=== PATIENT | female | born 2000 | race Caucasian/White ===

== ENCOUNTER 2023-03-31 21:34 | Emergency (ER) | payer OTHER ==
[2023-03-31 21:44] VITALS: BP 100/63; PULSE 83; RESP 20; TEMP 98.1; BMI 21.4
[2023-03-31] MEDS ORDERED: SULFAMETHOXAZOLE/TRIMETHOPRIM 800MG/160MG D.S. TABLET PO ONE (22:34)
[2023-03-31] MEDS ORDERED: SULFAMETHOXAZOLE/TRIMETHOPRIM 800MG/160MG D.S. TABLET ONE (22:42)
[2023-03-31 22:59] LABS: EPI CELLS >36 /uL (0-25.1); HYALINE CASTS 0 /uL (0-3.1); URINE APPEARANCE CLEAR; URINE BACTERIA 681 /uL (0-1359); URINE BILIRUBIN NEGATIVE (NEGATIVE); URINE COLOR YELLOW; URINE GLUCOSE (UA) NEGATIVE (NEGATIVE); URINE KETONE TRACE (NEGATIVE); URINE LEUK ESTERASE 1+ (NEGATIVE); URINE NITRITE NEGATIVE (NEGATIVE); URINE PROTEIN NEGATIVE (NEGATIVE); URINE RBC 15 /uL (0-23.9); URINE WBC 112 /uL (0-25.8)
== END 2023-03-31 22:52 | disposition home or self-care (01) ==
LOC: JERFT 21:34
DX: R30.0 Dysuria (principal); F41.0 Panic disorder [episodic paroxysmal anxiety]; R39.12 Poor urinary stream
CPT/HCPCS: 81003; 84703; 87086; 93005; 93010; 99284-25